=== PATIENT | female | born 1955 | race Caucasian/White ===

== ENCOUNTER 2023-03-22 10:57 | Emergency (ER) | payer MEDICARE, SELFPAY ==
[2023-03-22 11:05] VITALS: BP 138/87; PULSE 114; RESP 18; TEMP 36.3; O2SAT 97; BMI 21.2
--- NOTE | 2023-03-22 11:13 | CRLHL7_ITS ---
For Patients: As a result of the Cures Act, medical imaging exams and procedure reports are released immediately into your electronic medical record. You may view this report before your referring provider. If you have questions, please contact your health care provider. INDICATION: Cough. TECHNIQUE: Chest 1 views. COMPARISON: None. FINDINGS: Lungs: Normal lung volume. No consolidation. Multiple calcified granulomas. Pleura: No pleural effusion or pneumothorax. Heart and Mediastinum: Normal heart size. The great vessels of the thorax are unremarkable. Bones: No acute displaced osseous process. Cholecystectomy clips. IMPRESSION: No consolidation. Dictated by Ze Haas MD @ 03/22/2023 12:39:56 PM (Electronically Signed)
--- NOTE | 2023-03-22 11:26 | ED.GENADULT ---
HPI - General Adult General Chief complaint: Sore Throat Stated complaint: has cancer, wants covid test Time Seen by Provider: 03/22/23 11:13 Source: patient Mode of arrival: ambulatory Limitations: no limitations History of Present Illness HPI narrative: Patient is a 68-year-old woman here for evaluation of sore throat and cough. She was exposed to COVID a couple of days ago. She has a diagnosis of ovarian cancer, she is on a 2 month break from chemotherapy but otherwise is undergoing active treatment. Cough is mild, no shortness of breath, no pleuritic chest pain. She does have some pain in her right lateral chest when she moves her arm and when she pushes on that area. She has not had a fever that she knows of. Her is also 2nd is here for testing as well. She does not smoke, denies other medical history, currently on no medications. Related Data Previous Rx's Medication Instructions Recorded nirmatrelvir 300 mg (150 mg See Rx Instructions PO .COMPLEX 03/22/23 x2)-ritonavir 100 mg tablet,dose #30 ea pack (Paxlovid) Allergies Allergy/AdvReac Type Severity Reaction Status Date / Time No Known Drug Allergies Allergy Verified 03/22/23 11:08 Review of Systems Status of ROS: Reports: 6 or more systems reviewed and unremarkable except as noted in History and below [facility] Social History Smoking Status: Never smoker How often do you have a drink containing alcohol: monthly or less AUDIT-C Alcohol total score: 1 Non-prescribed substance use: denies use service: No Exam Narrative: Exam Narrative: Vital signs as noted above. In general, an alert, well-appearing patient. Head: Normocephalic, atraumatic. Eyes: Pupils are equal reactive. Extraocular movements are full. Conjunctivae are normal. ENT: Mucous membranes are moist. Throat is normal. Neck: Supple without lymphadenopathy. Heart: Regular rate and rhythm. No murmur or rub. Lungs: Clear bilaterally. No increased work of breathing, crackles or wheezes. Abdomen: Soft and nontender. No organomegaly. Extremities: Well perfused. No edema. No calf tenderness. Pulses intact. Neurologic: Patient is alert and oriented to person and place. Speech is fluent. Face is symmetric. Moves all extremities equally. Affect: Normal. Skin: Warm and dry. Well perfused. Const: Vital Signs, click to edit/add: Vital Signs - 24 hr 03/22/23 11:05 Temperature 97.4 F L Pulse Rate [Right Pulse Oximeter] 114 H Respiratory Rate 18 Blood Pressure [Le ft Upper Arm] 138/87 Pulse Oximetry 97 Oxygen Delivery Me thod Room Air Course Course Hospital Course: Her chest pain seems more muscular but will just check a chest x-ray make sure that that is negative. Otherwise clinically she looks well, COVID test is pending. She would be a candidate for Paxlovid if positive. Chest x-ray is negative by my review as well as final radiology read. Patient's COVID test is negative but her did test positive, given her underlying cancer diagnosis and symptoms I am going to just go ahead and treat her. Return for worsening, primary care follow-up if not improving over the next 7-10 days. Vital Signs Vital signs: Initial Vital Signs Temperature 97.4 F L 03/22/23 11:05 Temperature Source Temporal Artery Scan 03/22/23 11:05 Pulse Rate 114 H 03/22/23 11:05 Respiratory Rate 18 03/22/23 11:05 Blood Pressure 138/87 03/22/23 11:05 Blood Pressure Mean 104 03/22/23 11:05 Blood Pressure Position Sitting 03/22/23 11:05 Pulse Oximetry 97 03/22/23 11:05 Oxygen Delivery Method Room Air 03/22/23 11:05 Vital Signs Temperature 97.4 F L 03/22/23 11:05 Pulse Rate 114 H 03/22/23 11:05 Respiratory Rate 18 03/22/23 11:05 Blood Pressure 138/87 03/22/23 11:05 Pulse Oximetry 97 03/22/23 11:05 Oxygen Delivery Method Room Air 03/22/23 11:05 Temperature 97.4 F L 03/22/23 11:05 Pulse Rate 114 H 03/22/23 11:05 Respiratory Rate 18 03/22/23 11:05 Blood Pressure 138/87 03/22/23 11:05 Pulse Oximetry 97 03/22/23 11:05 Oxygen Delivery Method Room Air 03/22/23 11:05 Medical Decision Making Lab Data Labs: Lab Results 03/22/23 Range/Units 11:11 SARS-CoV-2 (PCR) Negative SARS-CoV-2 (Negative) Influenza Type A (PCR) Negative PCR FLU A (Negative) Influenza Type B (PCR) Negative PCR FLU B (Negative) RSV (PCR) Negative PCR RSV (Negative) Discharge Plan Discharge Clinical Impression: Close exposure to COVID-19 virus, Upper respiratory infection Patient Disposition: Home, Self-Care Condition: Stable Instructions: COVID-19 (Coronavirus Disease 2019) (ED) Additional Instructions: Paxlovid as prescribed. Return for worsening symptoms such as shortness of breath, high fevers or other acute changes. Primary care follow-up if not improving over the next 7-10 days. Prescriptions: New Paxlovid 300 mg (150 mg x 2)-100 mg tablets,dose pack See Rx Instructions .ROUTE .COMPLEX Qty: 30 0RF Rx Instructions: take TWO 150 mg tablets of nirmatrelvir with ONE 100 mg tablet of ritonavir twice daily for 5 days Stand Alone Forms: MyHealth Info Instructions
[2023-03-22 12:11] LABS: PCR FLU A Negative PCR FLU A (Negative); PCR FLU B Negative PCR FLU B (Negative); PCR RSV Negative PCR RSV (Negative)
[2023-03-22 12:12] LABS: SARS PCR* Negative SARS-CoV-2 (Negative)
== END 2023-03-22 12:53 | disposition home or self-care (01) ==
PROVIDERS: Emergency Provider Emergency Medicine
DX: Z20.822 Contact with and (suspected) exposure to COVID-19 (principal)
CPT/HCPCS: 71045; 87631; 99283; 99284